=== PATIENT | female | born 1955 | race Caucasian/White ===

== ENCOUNTER → 2016-06-21 | Outpatient (CLI) | payer BC | LOC: MC.RAD 14:00 | DX: Z12.31 Encounter for screening mammogram for malignant neoplasm of breast (principal) ==

== ENCOUNTER → 2017-07-09 | Outpatient (CLI) | payer BC | LOC: COL.RAD 09:21 | DX: M51.27 Other intervertebral disc displacement, lumbosacral region (principal); M48.061 Spinal stenosis, lumbar region without neurogenic claudication; M48.8X7 Other specified spondylopathies, lumbosacral region; S32.049A Unspecified fracture of fourth lumbar vertebra, initial encounter for closed fracture; M51.46 Schmorl's nodes, lumbar region ==